=== PATIENT | female | born 1955 ===

== ENCOUNTER 2017-02-24 12:58 | Observation (INO) | payer OTHER ==
[2017-02-24 13:37] VITALS: BMI 32.1
--- NOTE | 2017-02-24 13:38 | ED PDOC ---
Arrival/HPI - General Time Seen by Provider: 02/24/17 13:26 Historian: Patient, Family (Daughter) - History of Present Illness Narrative History of Present Illness (Text): 02/24/17 13:36 61 year old female with a past medical history that includes gastritis, diverticulitis, pancreatitis, hypertension, hypercholesterlemia, and diabetes presents to the emergency department with worsening epigastric pain with nausea since 02:00 this morning. History translated by daughter at bedside. Patient states it radiates up to the chest. Patient states this feels more severe than her previous symptoms. Denies shortness of breath, dizziness, or other symptoms. Denies family history of cardiac disease. Time/Duration: 24 hours Symptom Onset: Sudden Symptom Course: Worsening Modifying Factors (Text): None Past Medical History - Provider Review Nursing Documentation Reviewed: Yes - Infectious Disease Hx of Infectious Diseases: None - Tetanus Immunization Tetanus Immunization: Unknown - Cardiac Hx Cardiac Disorders: Yes Hx Hypertension: Yes - Pulmonary Hx Respiratory Disorders: No - Neurological Hx Neurological Disorder: Yes Hx Dizziness: Yes - HEENT Hx HEENT Disorder: No (OTITIS MEDIA) - Renal Hx Renal Disorder: No - Endocrine/Metabolic Hx Endocrine Disorders: Yes Hx Diabetes Mellitus Type 2: Yes Other/Comment: IDDM - Hematological/Oncological Hx Blood Disorders: No - Integumentary Hx Dermatological Disorder: No - Musculoskeletal/Rheumatological Hx Musculoskeletal Disorders: Yes Hx Arthritis: Yes Hx Falls: No - Gastrointestinal Hx Gastrointestinal Disorders: Yes Hx Diverticulitis: Yes Hx Gastroesophageal Reflux: Yes - Genitourinary/Gynecological Hx Genitourinary Disorders: No - Psychiatric Hx Depression: No Hx Emotional Abuse: No Hx Physical Abuse: No Hx Substance Use: No - Past Surgical History Past Surgical History: No Previous - Surgical History Hx Section: Yes - Anesthesia Hx Anesthesia Reactions: No - Suicidal Assessment Feels Threatened In Home Enviroment: No Family/Social History - Physician Review Nursing Documentation Reviewed: Yes Family/Social History: Unknown Family HX Smoking Status: Never Smoked Hx Alcohol Use: Yes (SOCIALLY) Hx Substance Use: No Hx Substance Use Treatment: No Allergies/Home Meds Allergies/Adverse Reactions: Allergies No Known Allergies Allergy (Verified 02/24/17 13:37) Home Medications: Home Meds Medication Instructions Recorded Confirmed Aspirin [Aspir 81] 81 mg PO DAILY 03/16/13 07/08/15 Review of Systems - Review of Systems Eyes: absent: Vision Changes ENT: absent: Hearing Changes Respiratory: absent: SOB, Cough Cardiovascular: Chest Pain. absent: Edema Gastrointestinal: Abdominal Pain, Nausea Genitourinary Female: absent: Dysuria Musculoskeletal: absent: Back Pain Skin: absent: Rash Neurological: absent: Dizziness Endocrine: absent: Diaphoresis Hemo/Lymphatic: absent: Easy Bleeding Psychiatric: absent: Depression Physical Exam - Physical Exam Narrative Physical Exam (Text): Head: Atraumatic. Normocephalic. Eyes: PERRL. EOMI. Conjunctivae are not pale. ENT: Mucous membranes are moist and intact. Oropharynx is clear and symmetric. Neck: Supple. Full ROM. No JVD. No lymphadenopathy. Cardiovascular: Tachycardic. Distal pulses in upper and lower extremities symmetric and intact. Pulmonary/Chest: No evidence of respiratory distress. Clear to auscultation bilaterally. No wheezing, rales or rhonchi. Abdominal: Soft and non-distended. Focal severe epigastric pain, no pulsatile masses, no rebound. No lower abdominal pain. Back: No CVA tenderness. No midline tenderness. Extremities: No edema. No cyanosis. No clubbing. Full range of motion in all extremities. No calf tenderness. Skin: Skin is diaphoretic. No petechiae. No purpura. Neurological: Alert, awake, and oriented to person, place, time, and situation. Normal speech. Motor and sensory intact. Psychiatric: Good eye contact. Normal interaction, affect, and behavior. 02/24/17 17:29 Vital Signs Reviewed: Yes Vital Signs Temp Pulse Resp BP Pulse Ox 02/24/17 13:40 99.1 F 127 H 16 133/81 94 L Temperature: Afebrile Blood Pressure: Normal Pulse: Tachycardic Respiratory Rate: Normal Appearance: Positive for: Uncomfortable Pain Distress: Severe Mental Status: Positive for: Alert and Oriented X 3 Medical Decision Making ED Course and Treatment: Differential diagnosis includes but is not limited to: Coronary artery disease vs gastritis vs perforated ulcer vs biliary colic vs diverticulitis vs appendicitis Plan: Will give IV fluids, Morphine, Zofran, obtain EKG and CT of the Abdomen/Pelvis, and reassess. Prior Visits: Patient's previous medical records were reviewed. Ultrasound of the Abdomen on 07/08/2015 showed: IMPRESSION: Unremarkable abdominal sonogram. CT of the Abdomen/Pelvis on 07/08/2015 showed: Impression: 9 mm right renal hypodense lesion, too small to adequately characterize ; statistically likely cyst. Scattered diverticulosis without CT evidence of acute diverticulitis. Progress Notes: Patient's daughter present who translates. On exam, she has palpable severe epigastric pain. Pain radiates to chest. EKG reveals tachycardia but no acute st elevations. Initial troponin unremarkable. Due to severity of pain, ct ordered to evalute for free air or obstruction, this was negative for free air or obstruction. Patient after iv fluids and iv pain medication, heart rate improved to 108. No hypoxia or pleuritic pain. Nonsmoker. No family hx of CAD. No recent travel or calf pain or edema noted. Suspect chest pain possible gi in nature. She reports prior hx of "gastritis" in 2014, although states much more severe. Cannot exclude cholelithiasis although CT did not reveal this. LFTs mildly elevated, this has been noticed in past. Will admit to hospitalist for serial exams, cardiac monitoring. Treatment plan reviewed with patient, case d/w Dr. Jara. 02/24/17 17:34 - Lab Interpretations Lab Results: 02/24/17 13:54 02/24/17 13:54 Lab Results 02/24/17 15:45: Urine Color Yellow, Urine Appearance Clear, Urine pH 7.0, Ur Specific [place] 1.020, Urine Protein Negative, Urine Glucose (UA) Negative, Urine Ketones Trace H, Urine Blood Negative, Urine Nitrate Negative, Urine Bilirubin Negative, Urine Urobilinogen 0.2, Ur Leukocyte Esterase Negative 02/24/17 14:26: POC Glucose (mg/dL) 115 H 02/24/17 13:54: WBC 9.1 D, RBC 5.28, Hgb 14.7, Hct 44.1, MCV 83.5, MCH 27.8, MCHC 33.3, RDW 14.0, Plt Count 203, MPV 9.5, Gran % 86.5 H, Lymph % (Auto) 4.2 L , [place] % (Auto) 8.2 H, Eos % (Auto) 1.0 L, Baso % (Auto) 0.1, Gran # 7.88 H, Lymph # 0.4 L, [place] # 0.8 H, Eos # 0.1, Baso # 0.01, PT 11.1, INR 1.03, APTT 27.5, pO2 55, VBG pH 7.38, VBG pCO2 46.0, VBG HCO3 27.2, VBG Total CO2 28.6 H, VBG O2 Sat (Calc) 91.6 H, VBG Base Excess 1.5, VBG Potassium 3.7, Glucose 172 H , Lactate 1.5, FiO2 21.0, Sodium 138.0, Potassium 3.8, Chloride 104.0, Carbon Dioxide 27, Anion Gap 14, BUN 26 H, Creatinine 0.6, Est GFR ( Amer) > 60 , Est GFR (Non-Af Amer) > 60, Random Glucose 167 H, Calcium 9.2, Total Bilirubin 1.0, AST 44 H, ALT 64 H, Alkaline Phosphatase 128, Lactate Dehydrogenase 590, Total Creatine Kinase 62, Troponin I < 0.01, Total Protein 8.6 H, Albumin 4.3, Globulin 4.3, Albumin/Globulin Ratio 1.0 L, Amylase 113, Lipase 129, Venous Blood Potassium 3.7 - RAD Interpretation Radiology Orders: 02/24/17 13:39 ABD & PELVIS W/O PO OR IV CONT [CT] Stat CHEST PORTABLE [RAD] Stat Boat Operator: Radiologist - EKG Interpretation EKG Interpretation (Text): EKG shows sinus tachycardia at [address] abnormality. Interpreted by ED Physician: Yes Type: 12 lead EKG - Medication Orders Current Medication Orders: Insulin Human Regular (Humulin R Low) 0 units SC ACHS JERMAINE Metoprolol Tartrate (Lopressor) 25 mg PO BRKDIN JERMAINE Morphine Sulfate (Morphine) 2 mg IVP Q4H PRN PRN Reason: Pain, severe (8-10) Ondansetron HCl (Zofran Inj) 4 mg IVP Q4H PRN PRN Reason: Nausea/Vomiting Pantoprazole Sodium (Protonix Inj) 40 mg IVP Q12 JERMAINE Discontinued Medications Famotidine (Pepcid) 20 mg IVP STAT STA Stop: 02/24/17 13:42 Last Admin: 02/24/17 13:50 Dose: 20 MG IVP Administration Document 02/24/17 13:50 [facility] (Rec: 02/24/17 13:50 [id number]) Charges for Administration # of IVP Administrations 1 Sodium Chloride (Sodium Chloride 0.9%) 1,000 mls @ 1,000 mls/hr IV .Q1H STA Stop: 02/24/17 14:40 Last Admin: 02/24/17 13:49 Dose: 1,000 MLS/HR eMAR Start Stop Document 02/24/17 13:49 [facility] (Rec: 02/24/17 13:50 [id number] Intravenous Solution Start Date 02/24/17 Start Time 13:50 End Date 02/24/17 End time 14:50 Total Infusion Time 60 Morphine Sulfate (Morphine) 2 mg IVP STAT STA Stop: 02/24/17 13:42 Last Admin: 02/24/17 13:50 Dose: 2 MG MAR Pain Assessment Document 02/24/17 13:50 [facility] (Rec: 02/24/17 13:50 [id number] Pain Reassessment Is this a pain reassessment? No IVP Administration Document 02/24/17 13:50 [facility] (Rec: 02/24/17 13:50 [id number] Charges for Administration # of IVP Administrations 1 Ondansetron HCl (Zofran Inj) 4 mg IVP ONCE ONE Stop: 02/24/17 13:42 Last Admin: 02/24/17 13:50 Dose: 4 MG IVP Administration Document 02/24/17 13:50 [facility] (Rec: 02/24/17 13:50 [id number] Charges for Administration # of IVP Administrations 1 - Scribe Statement The provider has reviewed the documentation as recorded by the Karthik Grover All medical record entries made by the Karthik were at my direction and personally dictated by me. I have reviewed the chart and agree that the record accurately reflects my personal performance of the history, physical exam, medical decision making, and the department course for this patient. I have also personally directed, reviewed, and agree with the discharge instructions and disposition. Disposition/Present on Arrival - Present on Arrival Any Indicators Present on Arrival: Yes History of DVT/PE: No History of Uncontrolled Diabetes: Yes Urinary Catheter: No History Surgical Site Infection Following: None - Disposition Have Diagnosis and Disposition been Completed?: Yes Diagnosis: Chest pain, Abdominal pain Disposition: HOSPITALIZED Disposition Time: 15:20 Patient Plan: Admission, Observation Patient Problems: Current Active Problems Problem Status Diagnosed Abdominal pain Acute Chest pain Acute Condition: FAIR
[2017-02-24] MEDS ORDERED: Sodium Chloride 0.9% 1,000 ML IV STA (13:41)
[2017-02-24] MEDS ORDERED: Morphine 2 mg/ml ISec IVP STA (13:41)
[2017-02-24 13:55] LABS: ADD MANUAL DIFF? NO
[2017-02-24 13:59] LABS: BASO # 0.01 K/mm3 (0.0-2.0); BASO % 0.1 % (0.0-3.0); EOS # 0.1 (0.0-0.7); GRAN # 7.88 (1.4-6.5); GRAN % 86.5 % (50.0-68.0); HEMATOCRIT 44.1 % (36.0-48.0); LYMPH # 0.4 (1.2-3.4); LYMPH % 4.2 % (22.0-35.0); MEAN CELL VOLUME 83.5 fL (80.0-105.0); MEAN CORPUSCULAR HEMOGLOBIN 27.8 pg (25.0-35.0); MEAN CORPUSCULAR HGB CONC 33.3 g/dl (31.0-37.0); MEAN PLATELET VOLUME 9.5 fl (7.0-11.0); MONO # 0.8 (0.1-0.6); MONO % 8.2 % (1.0-6.0); PLATELET COUNT 203 10^3/uL (120.0-450.0); WHITE BLOOD COUNT 9.1 10^3/ul (4.5-11.0)
[2017-02-24 14:12] LABS: INR 1.03 (0.93-1.08); PARTIAL THROMBOPLASTIN TIME 27.5 Seconds (23.7-30.8)
[2017-02-24 14:16] LABS: VENOUS BLOOD GAS BASE EXCESS 1.5 mmol/L (0.0-2.0); VENOUS BLOOD PH 7.38 (7.32-7.43)
[2017-02-24 14:32] LABS: ALKALINE PHOSPHATASE 128 U/L (38-133); ALT/SGPT 64 U/L (7-56); AMYLASE 113 U/L (35-125); AST/SGOT 44 U/L (15-39); BLOOD UREA NITROGEN 26 mg/dL (7-21); CALCIUM 9.2 mg/dL (8.4-10.5); CARBON DIOXIDE 27 mmol/L (21-33); CHLORIDE 100 mmol/L (98-107); GFR AFRICAN-AMERICAN > 60; GLUCOSE,RANDOM 167 mg/dL (70-110); LIPASE 129 U/L (23-300); POTASSIUM 3.8 mmol/L (3.6-5.0); SODIUM 137 mmol/L (132-148); TOTAL PROTEIN 8.6 g/dL (5.8-8.3)
[2017-02-24 14:45] LABS: TROPONIN I < 0.01 ng/mL
--- NOTE | 2017-02-24 15:17 | CT ---
PROCEDURE: CT Abdomen and Pelvis without intravenous contrast HISTORY: severe upper abdominal pain with nausea COMPARISON: None. TECHNIQUE: Without contrast.. Contrast Dose: Radiation dose: Total exam DLP = 656 mGy-cm. This CT exam was performed using one or more of the following dose reduction techniques: Automated exposure control, adjustment of the mA and/or kV according to patient size, and/or use of iterative reconstruction technique. FINDINGS: LOWER THORAX: Unremarkable. LIVER: Unremarkable. No gross lesion or ductal dilatation. GALLBLADDER AND BILE DUCTS: Unremarkable. PANCREAS: Unremarkable. No gross lesion or ductal dilatation. SPLEEN: Unremarkable. ADRENALS: Unremarkable. No mass. KIDNEYS AND URETERS: Unremarkable. No hydronephrosis. No solid mass. VASCULATURE: Unremarkable. No aortic aneurysm. BOWEL: Unremarkable. No obstruction. No gross mural thickening. Mild diverticulosis APPENDIX: Unremarkable. Normal appendix. PERITONEUM: Unremarkable. No free fluid. No free air. LYMPH NODES: Unremarkable. No enlarged lymph nodes. BLADDER: Unremarkable. REPRODUCTIVE: Small right ovarian cyst BONES: No acute fracture. OTHER FINDINGS: None. IMPRESSION: No acute findings
--- NOTE | 2017-02-24 15:17 | RAD ---
HISTORY: chest pain COMPARISON: No prior. FINDINGS: LUNGS: No active pulmonary disease. PLEURA: No significant pleural effusion identified, no pneumothorax apparent. CARDIOVASCULAR: Normal. OSSEOUS STRUCTURES: No significant abnormalities. VISUALIZED UPPER ABDOMEN: Normal. OTHER FINDINGS: None. IMPRESSION: No active disease.
[2017-02-24 16:01] LABS: URINE BILIRUBIN NEGATIVE (NEGATIVE); URINE BLOOD NEGATIVE (NEGATIVE); URINE GLUCOSE (UA) NEGATIVE (NEGATIVE); URINE KETONE TRACE mg/dL (NEGATIVE); URINE LEUKOCYTE ESTERASE NEGATIVE Leu/uL (NEGATIVE); URINE PROTEIN NEGATIVE mg/dL (<30 mg/dL); URINE UROBILINOGEN 0.2 E.U./dL (<1 E.U./dL)
[2017-02-24 16:03] LABS: URINE APPEARANCE CLEAR (CLEAR); URINE COLOR YELLOW (YELLOW)
[2017-02-24] MEDS ORDERED: Morphine 2 mg/ml ISec IVP PRN (16:25)
--- NOTE | 2017-02-24 16:33 | CP.PCM.HP ---
<Stacy Pickens - Last Filed: 02/24/17 18:36> History of Present Illness - History of Present Illness History of Present Illness: CC: Abdominal pain HPI: 61 year old female hypertension, DM, gastritis and hypercholesterlemia presents to [facility] with epigastric pain. Patient reports the pain started this morning at 1 am and it suddenly got worse at 10am. Patient describes the pain as sharp in quality, radiates to both sides of her abdomen. Patient reports having 1 episodes of NBNB vomiting and 3 episodes of diarrhea which alleviated her abdominal pain. Patient states she had the similar abdominal pain 2 years ago. Patient never had colonoscopy or endoscopy done before. She is schedule for a colonoscopy next month. Patient had a subjective fever at home. Denies headache, blurry vision, shortness of breath, chest pain, urinary symptoms, sick contacts, recent changes in diet. PMD: Dr. Szymanski from [place], [place] PMHx: hypertension, DM, gastritis and hypercholesterlemia PSHx: FMHx: father had gallstone Allergy: none Social: Denies tobacco, alcohol, other drug use Meds: Asa, omeprazole, januvia, levemir Present on Admission - Present on Admission Any Indicators Present on Admission: No Review of Systems - Review of Systems All systems: reviewed and no additional remarkable complaints except - Constitutional Constitutional: As Per HPI, Fever. absent: Fatigue, Headache - EENT Eyes: As Per HPI. absent: Blurred Vision, Dry Eye, Irritation Ears: As Per HPI. absent: Disequilibrium, Dizziness Nose/Mouth/Throat: As Per HPI. absent: Dry Mouth, Hoarsness, Mouth Pain - Cardiovascular Cardiovascular: As Per HPI. absent: Chest Pain, Diaphoresis, Dyspnea, Edema, Lightheadedness, Pedal Edema, Rapid Heart Rate, Syncope - Respiratory Respiratory: As Per HPI. absent: Cough, Dyspnea, Wheezing - Gastrointestinal Gastrointestinal: As Per HPI, Abdominal Pain, Diarrhea, Nausea, Vomiting. absent: Constipation, Dysphagia, Heartburn - Genitourinary Genitourinary: absent: Urinary Frequency, Urinary Hesitance, Urinary Urgency, Voiding Freq/Small Amts - Musculoskeletal Musculoskeletal: As Per HPI. absent: Deformity, Numbness, Tingling - Integumentary Integumentary: As Per HPI. absent: Acne, Rash, Swelling - Neurological Neurological: As Per HPI. absent: Dizziness, Syncope, Tremor, Weakness - Psychiatric Psychiatric: As Per HPI. absent: Anxiety, Confusion, Depression, Hallucinations - Endocrine Endocrine: As Per HPI. absent: Palpitations, Polydipsia, Polyphagia, Polyuria Past Patient History - Infectious Disease Hx of Infectious Diseases: None - Tetanus Immunizations Tetanus Immunization: Unknown - Past Social History Smoking Status: Never Smoked - CARDIAC Hx Cardiac Disorders: Yes Hx Hypertension: Yes - PULMONARY Hx Respiratory Disorders: No - NEUROLOGICAL Hx Neurological Disorder: Yes Hx Dizziness: Yes - HEENT Hx HEENT Problems: No (OTITIS MEDIA) - RENAL Hx Chronic Kidney Disease: No - ENDOCRINE/METABOLIC Hx Endocrine Disorders: Yes Hx Diabetes Mellitus Type 2: Yes Other/Comment: IDDM - HEMATOLOGICAL/ONCOLOGICAL Hx Blood Disorders: No - INTEGUMENTARY Hx Dermatological Problems: No - MUSCULOSKELETAL/RHEUMATOLOGICAL Hx Musculoskeletal Disorders: Yes Hx Arthritis: Yes Hx Falls: No - GASTROINTESTINAL Hx Gastrointestinal Disorders: Yes Hx Diverticulitis: Yes Hx Gastroesophageal Reflux: Yes - GENITOURINARY/GYNECOLOGICAL Hx Genitourinary Disorders: No - PSYCHIATRIC Hx Depression: No Hx Emotional Abuse: No Hx Physical Abuse: No Hx Substance Use: No - SURGICAL HISTORY Hx Section: Yes - ANESTHESIA Hx Anesthesia Reactions: No Meds Home Medications: Home Medication List Medication Instructions Recorded Confirmed Type Ondansetron ODT [Zofran ODT] 4 mg PO Q8 PRN #21 odt 02/25/17 Rx Allergies/Adverse Reactions: Allergies Allergy/AdvReac Type Severity Reaction Status Date / Time No Known Allergies Allergy Verified 02/24/17 13:37 Physical Exam - Constitutional Appears: Non-toxic, No Acute Distress - Head Exam Head Exam: ATRAUMATIC - Eye Exam Eye Exam: Normal appearance - ENT Exam ENT Exam: Mucous Membranes Moist - Neck Exam Neck exam: Positive for: Normal Inspection - Respiratory Exam Respiratory Exam: Clear to Auscultation Bilateral, NORMAL BREATHING PATTERN. absent: Rhonchi, Wheezes, Respiratory Distress - Cardiovascular Exam Cardiovascular Exam: REGULAR RHYTHM, RRR, +S1, +S2 - GI/Abdominal Exam GI & Abdominal Exam: Normal Bowel Sounds, Soft, Tenderness. absent: Hernia, Rigid Additional comments: epigastric tenderness - Extremities Exam Extremities exam: Positive for: normal capillary refill, normal inspection, pedal pulses present. Negative for: tenderness - Back Exam Back exam: NORMAL INSPECTION. absent: CVA tenderness (L), CVA tenderness (R) - Neurological Exam Neurological exam: Alert, Oriented x3 - Psychiatric Exam Psychiatric exam: Normal Affect, Normal Mood - Skin Skin Exam: Dry, Intact, Warm Results - Vital Signs Recent Vital Signs: Last Vital Signs Temp 99.1 F 02/24/17 13:40 Pulse 127 H 02/24/17 13:40 Resp 16 02/24/17 13:40 BP 133/81 02/24/17 13:40 Pulse Ox 94 L 02/24/17 13:40 - Labs Result Diagrams: 02/24/17 13:54 02/24/17 13:54 Assessment & Plan - Assessment and Plan (Free Text) Assessment: 61 year old female with past medical history of gastritis, diverticulitis, pancreatitis, hypertension, hypercholesterlemia, and diabetes was admitted for gastroenteritis Epicgastric abdominal pain -Gastroenteritis vs Gastritis -Afrebile, no leukocytosis -CT abd&pelvis no acute findings -Follow up hepatitis panels -Follow up stool, urine, and blood cultures -Follow up fecal leukocyte, stool occult blood -GI consult, Dr. Calderon help appreciated -Follow up Abdominal u/s to rule out gallstone -Cardio consult, Dr. Valdes help appreciated -Troponin negative x 1, pending repeats -NPO -Morphine 2mg Q4prn -Protonix 40mg iv DM -ISS -FS ACHS Hypertension -Metoprolol 25mg po BID -Monitor vitals Prophylactic measures -SCD for DVT ppx -Protonix for GI ppx -Tylenol for fever <Rangasamy,Ajantha - Last Filed: 03/07/17 16:34> Results - Vital Signs Recent Vital Signs: Last Vital Signs Temp 98.2 F 02/25/17 12:00 Pulse 75 02/25/17 14:00 Resp 20 02/25/17 12:00 BP 127/69 02/25/17 12:00 Pulse Ox 97 02/25/17 05:48 - Labs Result Diagrams: 02/24/17 13:54 02/25/17 06:45 Assessment & Plan - Assessment and Plan (Free Text) Assessment: attending note; Patient seen and examined with resident in ER. Patient is a 61 year old female hypertension, DM, gastritis and hypercholesterlemia presents to [facility] with epigastric pain. Patient reports the pain started this morning at 1 am and it suddenly got worse at 10am. CT abdomen and pelvis is negative. Most likely secondary to gastritis. Abdominal ultrasound and ordered to rule out gallstones.GI evaluation requested. chest pain; mostly in the epigastric area. Cardiac enzymes ordered. Upon discharge patient will follow-up with PMD in [place]. the diagnosis and treatment plan discussed with patient's daughter in detail. Attending/Attestation - Attestation I have personally seen and examined this patient.: Yes I have fully participated in the care of the patient.: Yes I have reviewed all pertinent clinical information: Yes
[2017-02-24] MEDS: Insulin Reg-LOW-Coverage SC SCH ×2 (19:19→21:33)
[2017-02-24] MEDS: Sodium Chloride 0.9% 1,000 ML IV SCH (20:26)
[2017-02-24 22:01] LABS: TROPONIN I < 0.01 ng/mL
[2017-02-25 05:48] VITALS: O2SAT 97
[2017-02-25 07:40] LABS: TROPONIN I 0.01 ng/mL
[2017-02-25] MEDS: Insulin Reg-LOW-Coverage SC SCH ×3 (07:57→17:22)
[2017-02-25 07:59] LABS: ALB/GLOB RATIO 0.9 (1.1-1.8); ALKALINE PHOSPHATASE 77 U/L (38-133); ALT/SGPT 53 U/L (7-56); AST/SGOT 43 U/L (15-39); BILIRUBIN,TOTAL 0.7 mg/dL (0.2-1.3); BLOOD UREA NITROGEN 26 mg/dL (7-21); CALCIUM 7.5 mg/dL (8.4-10.5); CARBON DIOXIDE 26 mmol/L (21-33); CHLORIDE 104 mmol/L (98-107); GFR AFRICAN-AMERICAN > 60; GLUCOSE,RANDOM 118 mg/dL (70-110); POTASSIUM 3.5 mmol/L (3.6-5.0); SODIUM 139 mmol/L (132-148); TOTAL PROTEIN 6.7 g/dL (5.8-8.3)
--- NOTE | 2017-02-25 08:58 | CP.PCM.CON ---
<Misti Galan - Last Filed: 02/25/17 08:59> History of Present Illness - History of Present Illness History of Present Illness: Gastroenterology Fellow/PGY4 Consult Note 61 year old female with history of Diabetes, Hypertension, Hyperlipidemia, and acid reflux presenting with chest pain. Patient describes mild epigastric discomfort yesterday around 530AM with progressive worsening to unbearable epigastric sharp pain without radiation by 1030AM, pain scale 10/10. She associates bilateral chest pressure, shortness of breath, and diaphoresis leading to ER presentation. Patient is different in character than usual acid reflux symptoms.She notes three episodes of clear vomitus and three episodes of diarrhea during event. Denies heartburn, indigestion, bloating, constipation, hematochezia, hematemesis, or weight loss. Overnight, she had two additional episodes of diarrhea. She notes complete resolution of epigastric pain and chest pressure. No further vomitus episodes. She does admit to routine use of Ibuprofen for pain relief over the last 10-15 years with decreased frequency to 3-4 pills a week. No prior EGD or colonoscopy. Family- father and daughter-gallstones, denies stomach cancer or colon cancer Social-denies tobacco, alcohol, illicit drug use [id number] Review of Systems - Review of Systems Review of Systems: A 12-point review of systems negative except for as above Past Patient History - Infectious Disease Hx of Infectious Diseases: None - Tetanus Immunizations Tetanus Immunization: Unknown - Past Social History Smoking Status: Never Smoked - CARDIAC Hx Cardiac Disorders: Yes Hx Hypertension: Yes - PULMONARY Hx Respiratory Disorders: No - NEUROLOGICAL Hx Neurological Disorder: Yes Hx Dizziness: Yes - HEENT Hx HEENT Problems: No (OTITIS MEDIA) - RENAL Hx Chronic Kidney Disease: No - ENDOCRINE/METABOLIC Hx Endocrine Disorders: Yes Hx Diabetes Mellitus Type 2: Yes Other/Comment: IDDM - HEMATOLOGICAL/ONCOLOGICAL Hx Blood Disorders: No - INTEGUMENTARY Hx Dermatological Problems: No - MUSCULOSKELETAL/RHEUMATOLOGICAL Hx Musculoskeletal Disorders: Yes Hx Arthritis: Yes Hx Falls: No - GASTROINTESTINAL Hx Gastrointestinal Disorders: Yes Hx Diverticulitis: Yes Hx Gastroesophageal Reflux: Yes - GENITOURINARY/GYNECOLOGICAL Hx Genitourinary Disorders: No - PSYCHIATRIC Hx Depression: No Hx Emotional Abuse: No Hx Physical Abuse: No Hx Substance Use: No - SURGICAL HISTORY Hx Section: Yes - ANESTHESIA Hx Anesthesia Reactions: No Meds Allergies/Adverse Reactions: Allergies Allergy/AdvReac Type Severity Reaction Status Date / Time No Known Allergies Allergy Verified 02/24/17 13:37 - Medications Medications: Current Medications Acetaminophen (Tylenol 325mg Tab) 650 mg PO Q6H PRN PRN Reason: Headache Last Admin: 02/24/17 18:18 Dose: 650 mg Sodium Chloride (Sodium Chloride 0.9%) 1,000 mls @ 75 mls/hr IV .[id number] [facility] Last Admin: 02/24/17 20:26 Dose: 75 mls/hr Insulin Human Regular (Humulin R Low) 0 units SC ACHS [facility] Last Admin: 02/24/17 21:33 Dose: Not Given Metoprolol Tartrate (Lopressor) 25 mg PO BRKDIN [facility] Last Admin: 02/24/17 18:17 Dose: 25 mg Morphine Sulfate (Morphine) 2 mg IVP Q4H PRN PRN Reason: Pain, severe (8-10) Ondansetron HCl (Zofran Inj) 4 mg IVP Q4H PRN PRN Reason: Nausea/Vomiting Pantoprazole Sodium (Protonix Inj) 40 mg IVP Q12 [facility] Last Admin: 02/24/17 21:32 Dose: 40 mg Physical Exam - Constitutional Appears: Non-toxic, No Acute Distress - Head Exam Head Exam: ATRAUMATIC, NORMOCEPHALIC - Eye Exam Eye Exam: EOMI, PERRL Pupil Exam: PERRL. absent: Miosis, Mydriatic - ENT Exam ENT Exam: Mucous Membranes Moist, Normal Oropharynx - Neck Exam Neck exam: Positive for: Full Rom, Normal Inspection - Respiratory Exam Respiratory Exam: Clear to Auscultation Bilateral. absent: Rales, Rhonchi, Wheezes - Cardiovascular Exam Cardiovascular Exam: RRR, +S1, +S2. absent: Gallop, Rubs - GI/Abdominal Exam GI & Abdominal Exam: Normal Bowel Sounds, Soft. absent: Distended, Firm, Guarding, Organomegaly, Rebound, Rigid, Tenderness - Extremities Exam Extremities exam: Positive for: full ROM. Negative for: pedal edema - Neurological Exam Neurological exam: Alert - Psychiatric Exam Psychiatric exam: Normal Affect, Normal Mood - Skin Skin Exam: Dry, Intact, Normal Color, Warm Results - Vital Signs Recent Vital Signs: Last Vital Signs Temp 98.8 F 02/25/17 05:48 Pulse 80 02/25/17 05:48 Resp 22 02/25/17 05:48 BP 120/60 02/25/17 05:48 Pulse Ox 97 02/25/17 05:48 - Labs Result Diagrams: 02/24/17 13:54 02/25/17 06:45 Labs: Laboratory Results - last 24 hr 02/24/17 02/24/17 02/25/17 18:10 21:15 06:45 Sodium 139 Potassium 3.5 L Chloride 104 Carbon Dioxide 26 Anion Gap 13 BUN 26 H Creatinine 0.7 Est GFR ( Amer) > 60 Est GFR (Non-Af Amer) > 60 POC Glucose (mg/dL) 141 H 141 H Random Glucose 118 H Calcium 7.5 L Total Bilirubin 0.7 AST 43 H ALT 53 Alkaline Phosphatase 77 Lactate Dehydrogenase 477 444 Total Creatine Kinase 51 42 Troponin I < 0.01 0.01 Total Protein 6.7 Albumin 3.3 Globulin 3.5 Albumin/Globulin Ratio 0.9 L Triglycerides 83 Cholesterol 165 LDL Cholesterol Direct 88 HDL Cholesterol 46 Assessment & Plan - Assessment and Plan (Free Text) Assessment: 61 year old female with history of Diabetes, Hypertension, Hyperlipidemia, and acid reflux presenting with chest pain and epigastric pain. CT A/P showing no acute findings. Laboratory findings showing mild elevation of transaminases. No prior EGD or colonoscopy. Plan: >chronic elevated LFTs since 12/2014 >pending Abdominal Ultrasound >pending Hepatitis panel >ordered autoimmune workup pending stool culture >counselled on benefit from outpatient EGD if symptoms persist and colonoscopy for CRC screening <Dwight Knott - Last Filed: 02/25/17 09:16> Meds - Medications Medications: Current Medications Acetaminophen (Tylenol 325mg Tab) 650 mg PO Q6H PRN PRN Reason: Headache Last Admin: 02/24/17 18:18 Dose: 650 mg Sodium Chloride (Sodium Chloride 0.9%) 1,000 mls @ 75 mls/hr IV .[id number] [facility] Last Admin: 02/24/17 20:26 Dose: 75 mls/hr Insulin Human Regular (Humulin R Low) 0 units SC ACHS [facility] Last Admin: 02/24/17 21:33 Dose: Not Given Metoprolol Tartrate (Lopressor) 25 mg PO BRKDIN [facility] Last Admin: 02/24/17 18:17 Dose: 25 mg Morphine Sulfate (Morphine) 2 mg IVP Q4H PRN PRN Reason: Pain, severe (8-10) Ondansetron HCl (Zofran Inj) 4 mg IVP Q4H PRN PRN Reason: Nausea/Vomiting Pantoprazole Sodium (Protonix Inj) 40 mg IVP Q12 [facility] Last Admin: 02/24/17 21:32 Dose: 40 mg Results - Vital Signs Recent Vital Signs: Last Vital Signs Temp 98.8 F 02/25/17 05:48 Pulse 80 02/25/17 05:48 Resp 22 02/25/17 05:48 BP 120/60 02/25/17 05:48 Pulse Ox 97 02/25/17 05:48 - Labs Result Diagrams: 02/24/17 13:54 02/25/17 06:45 Labs: Laboratory Results - last 24 hr 02/24/17 02/24/17 02/25/17 18:10 21:15 06:45 Sodium 139 Potassium 3.5 L Chloride 104 Carbon Dioxide 26 Anion Gap 13 BUN 26 H Creatinine 0.7 Est GFR ( Amer) > 60 Est GFR (Non-Af Amer) > 60 POC Glucose (mg/dL) 141 H 141 H Random Glucose 118 H Calcium 7.5 L Total Bilirubin 0.7 AST 43 H ALT 53 Alkaline Phosphatase 77 Lactate Dehydrogenase 477 444 Total Creatine Kinase 51 42 Troponin I < 0.01 0.01 Total Protein 6.7 Albumin 3.3 Globulin 3.5 Albumin/Globulin Ratio 0.9 L Triglycerides 83 Cholesterol 165 LDL Cholesterol Direct 88 HDL Cholesterol 46 Attending/Attestation - Attestation I have personally seen and examined this patient.: Yes I have fully participated in the care of the patient.: Yes I have reviewed all pertinent clinical information: Yes Notes (Text): 02/25/17 09:09 I have seen and examined patient with GI fellow. In brief, this is a 61 year old female with history of DM, HTN, hyperlipidemia who presents to hospital with complaint of chest pain which began yesterday at 5:30 AM and became worse by 10:30 AM. Prior to this she was in usual state of health. She describes a substernal burning sensation with associated epigastric abdominal pain, non- bloody emesis, and diarrhea. Since arrival to hospital her chest and abdominal pain have resolved but she continues to have loose bowel movements (two episodes overnight). She denies weight loss, rectal bleeding, fever/chills, recent travel, sick contacts, or recent antibiotic use. No prior endoscopic evaluation. DM / HTN Hyperlipidemia Atypical chest pain, epigastric pain Nausea, vomiting, diarrhea - ?gastroenteritis Transaminitis with similar elevation since 2014 - Awaiting results of abdominal US - Advance diet slowly as tolerated - Obtain viral hepatitis panel - Obtain stool studies - Workup of atypical chest pain as per medical team - Patient would benefit from elective outpatient EGD/colonoscopy following resolution of acute symptoms
[2017-02-25] MEDS ORDERED: Potassium Chloride 20 mEq ER Tab PO ONE (09:14)
[2017-02-25] MEDS: Sodium Chloride 0.9% 1,000 ML IV SCH (10:58)
--- NOTE | 2017-02-25 11:55 | US ---
HISTORY: r/o gall stone COMPARISON: None. TECHNIQUE: Grayscale imaging was performed. FINDINGS: LIVER: Measures 14.2 cm. There is diffuse increased echogenicity of the liver parenchyma. No mass. No intrahepatic bile duct dilatation. GALLBLADDER: Unremarkable. No gallstones. COMMON BILE DUCT: Measures 6 mm. No stones. No dilatation. PANCREAS: Unremarkable as visualized. No mass. No ductal dilatation. RIGHT KIDNEY: Measures 11.2cm. Normal echogenicity. No calculus, mass, or hydronephrosis. LEFT KIDNEY: Measures 12.5cm. Normal echogenicity. No calculus, mass, or hydronephrosis. SPLEEN: Normal in size and contour. No mass. AORTA: No aneurysmal dilatation. IVC: Unremarkable. OTHER FINDINGS: None. IMPRESSION: Diffuse increased echogenicity in the liver may reflect hepatic steatosis however parenchymal infectious/ inflammatory etiologies cannot be entirely excluded. Clinical and laboratory correlation is advised. No cholelithiasis or biliary dilatation.
[2017-02-25 13:01] VITALS: BP 127/69; PULSE 75; RESP 20; TEMP 98.2
--- NOTE | 2017-02-25 13:18 | CP.PCM.DIS ---
Addendum entered and electronically signed by Edin Self DO 02/25/17 15:25: F/U with GI in 2 weeks F/U at [facility] in 1 week Original Note: <Edin Self - Last Filed: 02/25/17 13:15> Provider - Provider Date of Admission: 02/24/17 15:54 Attending physician: Fiorella Salinas MD Primary care physician: NO PRIMARY CARE PROVIDER Time Spent in preparation of Discharge (in minutes): 45 Hospital Course - Lab Results Lab Results: Most Recent Lab Values WBC 9.1 10^3/ul (4.5-11.0) D 02/24/17 13:54 RBC 5.28 10^6/uL (3.5-6.1) 02/24/17 13:54 Hgb 14.7 gm/dL (12.0-16.0) 02/24/17 13:54 Hct 44.1 % (36.0-48.0) 02/24/17 13:54 MCV 83.5 fL (80.0-105.0) 02/24/17 13:54 MCH 27.8 pg (25.0-35.0) 02/24/17 13:54 MCHC 33.3 g/dl (31.0-37.0) 02/24/17 13:54 RDW 14.0 % (11.5-14.5) 02/24/17 13:54 Plt Count 203 10^3/uL (120.0-450.0) 02/24/17 13:54 MPV 9.5 fl (7.0-11.0) 02/24/17 13:54 Gran % 86.5 % (50.0-68.0) H 02/24/17 13:54 Lymph % (Auto) 4.2 % (22.0-35.0) L 02/24/17 13:54 [place] % (Auto) 8.2 % (1.0-6.0) H 02/24/17 13:54 Eos % (Auto) 1.0 % (1.5-5.0) L 02/24/17 13:54 Baso % (Auto) 0.1 % (0.0-3.0) 02/24/17 13:54 Gran # 7.88 (1.4-6.5) H 02/24/17 13:54 Lymph # 0.4 (1.2-3.4) L 02/24/17 13:54 Montgomery # 0.8 (0.1-0.6) H 02/24/17 13:54 Eos # 0.1 (0.0-0.7) 02/24/17 13:54 Baso # 0.01 K/mm3 (0.0-2.0) 02/24/17 13:54 PT 11.1 Seconds (9.9-11.8) 02/24/17 13:54 INR 1.03 (0.93-1.08) 02/24/17 13:54 APTT 27.5 Seconds (23.7-30.8) 02/24/17 13:54 pO2 55 mm/Hg (30-55) 02/24/17 13:54 VBG pH 7.38 (7.32-7.43) 02/24/17 13:54 VBG pCO2 46.0 (40-60) 02/24/17 13:54 VBG HCO3 27.2 mmol/l (21-28) 02/24/17 13:54 VBG Total CO2 28.6 mmol.L (22-28) H 02/24/17 13:54 VBG O2 Sat (Calc) 91.6 % (40-65) H 02/24/17 13:54 VBG Base Excess 1.5 mmol/L (0.0-2.0) 02/24/17 13:54 VBG Potassium 3.7 mmol/L (3.6-5.2) 02/24/17 13:54 Sodium 138.0 mmol/L (132-148) 02/24/17 13:54 Chloride 104.0 mmol/L (98-107) 02/24/17 13:54 Glucose 172 mg/dl (65-105) H 02/24/17 13:54 Lactate 1.5 mmol/L (0.7-2.1) 02/24/17 13:54 FiO2 21.0 % 02/24/17 13:54 Sodium 139 mmol/L (132-148) 02/25/17 06:45 Potassium 3.5 mmol/L (3.6-5.0) L 02/25/17 06:45 Chloride 104 mmol/L (98-107) 02/25/17 06:45 Carbon Dioxide 26 mmol/L (21-33) 02/25/17 06:45 Anion Gap 13 (10-20) 02/25/17 06:45 BUN 26 mg/dL (7-21) H 02/25/17 06:45 Creatinine 0.7 mg/dL (0.5-1.4) 02/25/17 06:45 Est GFR ( Amer) > 60 02/25/17 06:45 Est GFR (Non-Af Amer) > 60 02/25/17 06:45 POC Glucose (mg/dL) 141 mg/dL (65-110) H 02/24/17 21:15 Random Glucose 118 mg/dL (70-110) H 02/25/17 06:45 Calcium 7.5 mg/dL (8.4-10.5) L 02/25/17 06:45 Total Bilirubin 0.7 mg/dL (0.2-1.3) 02/25/17 06:45 AST 43 U/L (15-39) H 02/25/17 06:45 ALT 53 U/L (7-56) 02/25/17 06:45 Alkaline Phosphatase 77 U/L (38-133) 02/25/17 06:45 Lactate Dehydrogenase 444 U/L (333-699) 02/25/17 06:45 Total Creatine Kinase 42 U/L (35-230) 02/25/17 06:45 Troponin I 0.01 ng/mL 02/25/17 06:45 Total Protein 6.7 g/dL (5.8-8.3) 02/25/17 06:45 Albumin 3.3 g/dL (3.0-4.8) 02/25/17 06:45 Globulin 3.5 gm/dL 02/25/17 06:45 Albumin/Globulin Ratio 0.9 (1.1-1.8) L 02/25/17 06:45 Triglycerides 83 mg/dL (35-160) 02/25/17 06:45 Cholesterol 165 mg/dL (130-200) 02/25/17 06:45 LDL Cholesterol Direct 88 mg/dL (0-129) 02/25/17 06:45 HDL Cholesterol 46 mg/dL (29-60) 02/25/17 06:45 Amylase 113 U/L (35-125) 02/24/17 13:54 Lipase 129 U/L (23-300) 02/24/17 13:54 Venous Blood Potassium 3.7 mmol/L (3.6-5.2) 02/24/17 13:54 Urine Color Yellow (YELLOW) 02/24/17 15:45 Urine Appearance Clear (CLEAR) 02/24/17 15:45 Urine pH 7.0 (4.7-8.0) 02/24/17 15:45 Ur Specific [place] 1.020 (1.005-1.035) 02/24/17 15:45 Urine Protein Negative mg/dL (<30 mg/dL) 02/24/17 15:45 Urine Glucose (UA) Negative mg/dL (NEGATIVE) 02/24/17 15:45 Urine Ketones Trace mg/dL (NEGATIVE) H 02/24/17 15:45 Urine Blood Negative (NEGATIVE) 02/24/17 15:45 Urine Nitrate Negative (NEGATIVE) 02/24/17 15:45 Urine Bilirubin Negative (NEGATIVE) 02/24/17 15:45 Urine Urobilinogen 0.2 E.U./dL (<1 E.U./dL) 02/24/17 15:45 Ur Leukocyte Esterase Negative Parish/uL (NEGATIVE) 02/24/17 15:45 Hepatitis A IgM Ab Negative (NEGATIVE) 02/25/17 06:45 Hep Bs Antigen Negative (NEGATIVE) 02/25/17 06:45 Hep B Core IgM Ab Negative (NEGATIVE) 02/25/17 06:45 Hepatitis C Antibody Negative (NEGATIVE) 02/25/17 06:45 - Hospital Course Hospital Course: 61 year old female hypertension, DM, gastritis and hypercholesterlemia presents to [facility] with epigastric pain. Patient reports the pain started this morning at 1 am and it suddenly got worse at 10am. Patient describes the pain as sharp in quality, radiates to both sides of her abdomen. Patient reports having 1 episodes of NBNB vomiting and 3 episodes of diarrhea which alleviated her abdominal pain. Patient states she had the similar abdominal pain 2 years ago. Patient never had colonoscopy or endoscopy done before. She is schedule for a colonoscopy next month. Patient had a subjective fever at home. Denies headache, blurry vision, shortness of breath, chest pain, urinary symptoms, sick contacts, recent changes in diet. Pt was given IVF and placed on NPO. CT showed no acute disease. US showed fatty liver. No Leukocytosis. The following day, pt felt better. Abd pain, N/V resolved. Pt continued to have mild diarrhea but improved. Pt was seen by GI. GI recommend and US. Pt was instructed to follow up with PMD and take zofran for N/V. Discharge Exam - Head Exam Head Exam: ATRAUMATIC, NORMOCEPHALIC - Eye Exam Eye Exam: EOMI, Normal appearance, PERRL Pupil Exam: NORMAL ACCOMODATION, PERRL - ENT Exam ENT Exam: Mucous Membranes Moist - Respiratory Exam Respiratory Exam: NORMAL BREATHING PATTERN, UNREMARKABLE - Cardiovascular Exam Cardiovascular Exam: REGULAR RHYTHM, +S1, +S2 - GI/Abdominal Exam GI & Abdominal Exam: Soft, Tenderness, Unremarkable. absent: Distended, Firm - Neurological Exam Neurological exam: Alert, CN II-XII Intact, Normal Gait, Oriented x3, Reflexes Normal - Psychiatric Exam Psychiatric exam: Normal Affect, Normal Mood - Skin Skin Exam: Dry, Intact Discharge Plan - Discharge Medications Prescriptions: Ondansetron ODT [Zofran ODT] 4 mg PO Q8 PRN #21 odt PRN Reason: Nausea/Vomiting - Follow Up Plan Condition: FAIR Disposition: HOME/ ROUTINE Instructions: Chest Pain (ED), Acute Abdominal Pain (DC), Acute Abdominal Pain (GEN) Additional Instructions: Follow up with Dr. Calderon (Computer Operations Manager ) in 2 weeks Follow up at [facility] in 1 week Take Zofran for Nausea /VOmiting. Referrals: [facility] [place]] Yumiko WEINBERG,MD Boris [Medical Doctor] - <Fiorella Salinas - Last Filed: 02/25/17 15:52> Provider - Provider Date of Admission: 02/24/17 15:54 Attending physician: Fiorella Salinas MD Primary care physician: NO PRIMARY CARE PROVIDER Hospital Course - Lab Results Lab Results: Most Recent Lab Values WBC 9.1 10^3/ul (4.5-11.0) D 02/24/17 13:54 RBC 5.28 10^6/uL (3.5-6.1) 02/24/17 13:54 Hgb 14.7 gm/dL (12.0-16.0) 02/24/17 13:54 Hct 44.1 % (36.0-48.0) 02/24/17 13:54 MCV 83.5 fL (80.0-105.0) 02/24/17 13:54 MCH 27.8 pg (25.0-35.0) 02/24/17 13:54 MCHC 33.3 g/dl (31.0-37.0) 02/24/17 13:54 RDW 14.0 % (11.5-14.5) 02/24/17 13:54 Plt Count 203 10^3/uL (120.0-450.0) 02/24/17 13:54 MPV 9.5 fl (7.0-11.0) 02/24/17 13:54 Gran % 86.5 % (50.0-68.0) H 02/24/17 13:54 Lymph % (Auto) 4.2 % (22.0-35.0) L 02/24/17 13:54 Montgomery % (Auto) 8.2 % (1.0-6.0) H 02/24/17 13:54 Eos % (Auto) 1.0 % (1.5-5.0) L 02/24/17 13:54 Baso % (Auto) 0.1 % (0.0-3.0) 02/24/17 13:54 Gran # 7.88 (1.4-6.5) H 02/24/17 13:54 Lymph # 0.4 (1.2-3.4) L 02/24/17 13:54 Montgomery # 0.8 (0.1-0.6) H 02/24/17 13:54 Eos # 0.1 (0.0-0.7) 02/24/17 13:54 Baso # 0.01 K/mm3 (0.0-2.0) 02/24/17 13:54 PT 11.1 Seconds (9.9-11.8) 02/24/17 13:54 INR 1.03 (0.93-1.08) 02/24/17 13:54 APTT 27.5 Seconds (23.7-30.8) 02/24/17 13:54 pO2 55 mm/Hg (30-55) 02/24/17 13:54 VBG pH 7.38 (7.32-7.43) 02/24/17 13:54 VBG pCO2 46.0 (40-60) 02/24/17 13:54 VBG HCO3 27.2 mmol/l (21-28) 02/24/17 13:54 VBG Total CO2 28.6 mmol.L (22-28) H 02/24/17 13:54 VBG O2 Sat (Calc) 91.6 % (40-65) H 02/24/17 13:54 VBG Base Excess 1.5 mmol/L (0.0-2.0) 02/24/17 13:54 VBG Potassium 3.7 mmol/L (3.6-5.2) 02/24/17 13:54 Sodium 138.0 mmol/L (132-148) 02/24/17 13:54 Chloride 104.0 mmol/L (98-107) 02/24/17 13:54 Glucose 172 mg/dl (65-105) H 02/24/17 13:54 Lactate 1.5 mmol/L (0.7-2.1) 02/24/17 13:54 FiO2 21.0 % 02/24/17 13:54 Sodium 139 mmol/L (132-148) 02/25/17 06:45 Potassium 3.5 mmol/L (3.6-5.0) L 02/25/17 06:45 Chloride 104 mmol/L (98-107) 02/25/17 06:45 Carbon Dioxide 26 mmol/L (21-33) 02/25/17 06:45 Anion Gap 13 (10-20) 02/25/17 06:45 BUN 26 mg/dL (7-21) H 02/25/17 06:45 Creatinine 0.7 mg/dL (0.5-1.4) 02/25/17 06:45 Est GFR ( Amer) > 60 02/25/17 06:45 Est GFR (Non-Af Amer) > 60 02/25/17 06:45 POC Glucose (mg/dL) 141 mg/dL (65-110) H 02/24/17 21:15 Random Glucose 118 mg/dL (70-110) H 02/25/17 06:45 Calcium 7.5 mg/dL (8.4-10.5) L 02/25/17 06:45 Total Bilirubin 0.7 mg/dL (0.2-1.3) 02/25/17 06:45 AST 43 U/L (15-39) H 02/25/17 06:45 ALT 53 U/L (7-56) 02/25/17 06:45 Alkaline Phosphatase 77 U/L (38-133) 02/25/17 06:45 Lactate Dehydrogenase 444 U/L (333-699) 02/25/17 06:45 Total Creatine Kinase 42 U/L (35-230) 02/25/17 06:45 Troponin I 0.01 ng/mL 02/25/17 06:45 Total Protein 6.7 g/dL (5.8-8.3) 02/25/17 06:45 Albumin 3.3 g/dL (3.0-4.8) 02/25/17 06:45 Globulin 3.5 gm/dL 02/25/17 06:45 Albumin/Globulin Ratio 0.9 (1.1-1.8) L 02/25/17 06:45 Triglycerides 83 mg/dL (35-160) 02/25/17 06:45 Cholesterol 165 mg/dL (130-200) 02/25/17 06:45 LDL Cholesterol Direct 88 mg/dL (0-129) 02/25/17 06:45 HDL Cholesterol 46 mg/dL (29-60) 02/25/17 06:45 Amylase 113 U/L (35-125) 02/24/17 13:54 Lipase 129 U/L (23-300) 02/24/17 13:54 Venous Blood Potassium 3.7 mmol/L (3.6-5.2) 02/24/17 13:54 Urine Color Yellow (YELLOW) 02/24/17 15:45 Urine Appearance Clear (CLEAR) 02/24/17 15:45 Urine pH 7.0 (4.7-8.0) 02/24/17 15:45 Ur Specific [place] 1.020 (1.005-1.035) 02/24/17 15:45 Urine Protein Negative mg/dL (<30 mg/dL) 02/24/17 15:45 Urine Glucose (UA) Negative mg/dL (NEGATIVE) 02/24/17 15:45 Urine Ketones Trace mg/dL (NEGATIVE) H 02/24/17 15:45 Urine Blood Negative (NEGATIVE) 02/24/17 15:45 Urine Nitrate Negative (NEGATIVE) 02/24/17 15:45 Urine Bilirubin Negative (NEGATIVE) 02/24/17 15:45 Urine Urobilinogen 0.2 E.U./dL (<1 E.U./dL) 02/24/17 15:45 Ur Leukocyte Esterase Negative Parish/uL (NEGATIVE) 02/24/17 15:45 Stool Leukocytes, Qual Negative (NEGATIVE) 02/24/17 21:20 Hepatitis A IgM Ab Negative (NEGATIVE) 02/25/17 06:45 Hep Bs Antigen Negative (NEGATIVE) 02/25/17 06:45 Hep B Core IgM Ab Negative (NEGATIVE) 02/25/17 06:45 Hepatitis C Antibody Negative (NEGATIVE) 02/25/17 06:45 Attending/Attestation - Attestation I have personally seen and examined this patient.: Yes I have fully participated in the care of the patient.: Yes I have reviewed all pertinent clinical information, including history, physical exam and plan: Yes Notes (Text): I have seen and examined patient at bedside with the resident at bedside. Agree with the above note with the following additions/ exceptions: This is 61 year old female with history of HTN, dm-2, gastritis, dyslipidemia who got admitted for suspected gastroenteritis. Her abdominal pain and vomiting has resolved however had 1 episode of loose stool this morning. She was able to tolerate the diet without any problem. Patient wants to go home. GI consult appreciated. Patient is cleared to go home. Plan for outpatient Endoscopy. Advised patient to follow up with [facility] clinic in 3-5 days and follow up with GI clinic in [address] Fiorella Salinas
[2017-02-25 16:18] LABS: IMMUNOGLOBULIN G 1284.9 mg/dL (700.0-1600.0); IMMUNOGLOBULIN M 40.1 mg/dL (40.0-230.0)
[2017-02-25 16:19] LABS: IMMUNOGLOBULIN A 200.2 mg/dL (70.0-400.0)
--- NOTE | 2017-02-25 16:37 | CARD ---
APPROVED REPORT EKG Measurement Heart [id number] <Conclusion> Poor data quality, interpretation may be adversely affected Sinus tachycardia Possible Left atrial enlargement Nonspecific ST abnormality Abnormal ECG
--- NOTE | 2017-02-25 17:02 | CON ---
DATE: 02/25/2017 REASON FOR CONSULTATION: Cardiac evaluation for epigastric pain radiating to the chest. BRIEF CLINICAL HISTORY: This is a 61-year-old Bulgarian speaking female with a past medical history of hypertension, diabetes, gastric chronic problem in the past. Complaining of lower abdominal pain an d sometimes this pain radiates to the epigastrium and the chest. The patient denies any ____, denies any chest pain or palpitation or chest pain on exertion or dyspnea on exertion. PAST HISTORY: Significant for diabetes, hypertension, gastritis, hypercholesterolemia. PAST SURGICAL HISTORY: Significant for section. CURRENT MEDICATIONS: The patient is taking omeprazole, aspirin, Zofran p.r.n. ALLERGIES: No known drug allergies. REVIEW OF SYSTEMS: As per HPI. PHYSICAL EXAMINATION: As follows: VITAL SIGNS: Temperature afebrile, heart rate 75, blood pressure 127/69. HEENT: PERRLA. Extraocular muscles intact. NECK: Supple. No carotid bruits. No thyromegaly. CHEST: Clear to auscultation. HEART: S1, S2 regular. ABDOMEN: Soft. EXTREMITIES: Clubbing and cyanosis negative. BLOOD WORKUP: As follows: WBC ____, hemoglobin 14.7, hematocrit 44.1, platelet count 203. Chemistr y shows sodium 139, potassium 3.5, chloride 104, carbon dioxide 26, anion gap of 13, BUN 26, creatini ne 0.7, random sugar 115, calcium 7.5. Troponin 0.01. EKG showed sinus tachycardia, rate of 129. IMPRESSION: Atypical chest pain, mild tenderness in epigastrium, diabetes, hypertension, hyperlipide lenin. RECOMMENDATION: Continue GI workup. Because of the age and multiple risk factors for coronary arter y disease, suggest echo. The patient will be scheduled for echo as outpatient. For now, continue GI workup. We will follow with you. No evidence of acute coronary syndrome, no evidence of acute isch emia, atypical chest pain, abdominal pain radiating to the chest, mild tenderness in the left lower q uadrant. We will follow with you. Thank you, Dr. Jara for providing us the opportunity in taking care of the patient. Cori Valdes MD cc: [id number] TT: 02/25/2017 17:01:58 Confirmation # [id number] Dictation # [id number]
== END 2017-02-25 18:29 | disposition home or self-care (01) ==
LOC: ED 12:58 → ERH 15:54 → 2RNO 18:36
PROVIDERS: ADMIT Internal Medicine; ATTEND Hospitalist
DX: R07.89 Other chest pain (principal); R10.13 Epigastric pain; I10 Essential (primary) hypertension; K29.70 Gastritis, unspecified, without bleeding; E11.9 Type 2 diabetes mellitus without complications; E78.00 Pure hypercholesterolemia, unspecified; K21.9 Gastro-esophageal reflux disease without esophagitis; E78.5 Hyperlipidemia, unspecified; R11.2 Nausea with vomiting, unspecified; R19.7 Diarrhea, unspecified
CPT/HCPCS: 36415; 71010; 74176; 76700; 80053; 80061; 80074; 81003; 82150; 82550; 82784; 82803; 82948; 83615; 83690; 84484; 85025; 85610; 85730; 87040; 87045; 87086; 89055; 93005; 96361; 96374; 96375; 96376; 99285; C9113; G0378; J2270; J2405; J7040

== ENCOUNTER 2017-12-29 18:19 | Emergency (ER) | payer OTHER ==
[2017-12-29 18:19] VITALS: BMI 32.1
[2017-12-29 18:47] VITALS: TEMP 98.1
--- NOTE | 2017-12-29 19:27 | ED PDOC ---
Arrival/HPI - General Chief Complaint: Back Pain Time Seen by Provider: 12/29/17 19:21 Historian: Patient EM Caveat: Acuity of Condition - History of Present Illness Narrative History of Present Illness (Text): 12/29/17 19:28 Pt is a 62 yo female complaining of left mid to low back pain that refers to the left upper quadrant, groin and leg x 3 days. Pt reports that the pain is very intense, burning and aching frequently and often feels it in the epigastrium. Patient has a h/o insulin dependent diabetic with hypertension and hypercholesterolemia, for which she is medicated. Pt states that since the back and stomach pain started, she stopped taking her medication. Denies urinary or bowel changes, hematuria, shortness of breath, chest pain, fever or chill, nausea, vomiting or diarrhea. Time/Duration: Prior to Arrival Past Medical History - Provider Review Nursing Documentation Reviewed: Yes - Travel History Have you recently traveled outside [place] w/in the past 3 mons?: No - Infectious Disease Hx of Infectious Diseases: None - Tetanus Immunization Tetanus Immunization: Unknown - Cardiac Hx Cardiac Disorders: Yes Hx Hypertension: Yes - Pulmonary Hx Respiratory Disorders: No - Neurological Hx Neurological Disorder: Yes Hx Dizziness: Yes - HEENT Hx HEENT Disorder: No (OTITIS MEDIA) - Renal Hx Renal Disorder: No - Endocrine/Metabolic Hx Endocrine Disorders: Yes Hx Diabetes Mellitus Type 2: Yes Other/Comment: IDDM - Hematological/Oncological Hx Blood Disorders: No - Integumentary Hx Dermatological Disorder: No - Musculoskeletal/Rheumatological Hx Musculoskeletal Disorders: Yes Hx Arthritis: Yes - Gastrointestinal Hx Gastrointestinal Disorders: Yes Hx Diverticulitis: Yes Hx Gastroesophageal Reflux: Yes - Genitourinary/Gynecological Hx Genitourinary Disorders: No - Psychiatric Hx Depression: No Hx Emotional Abuse: No Hx Physical Abuse: No Hx Substance Use: No - Past Surgical History Past Surgical History: No Previous - Surgical History Hx Section: Yes - Anesthesia Hx Anesthesia Reactions: No - Suicidal Assessment Feels Threatened In Home Enviroment: No Family/Social History - Physician Review Nursing Documentation Reviewed: Yes Family/Social History: Unknown Family HX Smoking Status: Never Smoked Hx Alcohol Use: No Hx Substance Use: No Hx Substance Use Treatment: No Allergies/Home Meds Allergies/Adverse Reactions: Allergies No Known Allergies Allergy (Verified 12/29/17 18:40) Home Medications: Home Meds Medication Instructions Recorded Confirmed Atorvastatin [Lipitor] 40 mg PO DAILY 12/29/17 12/29/17 Losartan Potassium [Losartan 25 mg PO DAILY 12/29/17 12/29/17 Potassium] Sitagliptin Phos/Metformin HCl 1 tab PO BID 12/29/17 12/29/17 [Janumet 50-1,000 mg Tablet] Review of Systems - Review of Systems Systems not reviewed;Unavailable: Acuity of Condition Constitutional: Normal Eyes: Normal ENT: Normal Respiratory: Normal Cardiovascular: Normal Gastrointestinal: Normal, Abdominal Pain (left upper quadrant), Nausea, Other ( GERD) Genitourinary Female: Normal Musculoskeletal: Back Pain Skin: Normal Neurological: Normal Endocrine: Normal Hemo/Lymphatic: Normal Psychiatric: Normal Physical Exam Vital Signs Reviewed: Yes Vital Signs Temp Pulse Resp BP Pulse Ox 12/29/17 18:47 98.1 F 96 H 18 153/108 H 98 Temperature: Afebrile Blood Pressure: Normal Pulse: Regular Respiratory Rate: Normal Appearance: Positive for: Well-Appearing, Non-Toxic, Comfortable Pain Distress: None Mental Status: Positive for: Alert and Oriented X 3 - Systems Exam Head: Present: Atraumatic, Normocephalic Pupils: Present: PERRL Extroacular Muscles: Present: EOMI Conjunctiva: Present: Normal Mouth: Present: Moist Mucous Membranes Neck: Present: Normal Range of Motion Respiratory/Chest: Present: Clear to Auscultation, Good Air Exchange. No: Respiratory Distress, Accessory Muscle Use Cardiovascular: Present: Regular Rate and Rhythm, Normal S1, S2. No: Murmurs Abdomen: Present: Tenderness (LUQ and epigastrium), Normal Bowel Sounds. No: Distention, Peritoneal Signs, Rebound, Guarding, McBurney's Point Tender, Rovsing's Sign Present, Hernias, Feeding Tubes, Ostomy Tubes, Mass/Organomegaly , Scars, Other Back: Present: Normal Inspection Upper Extremity: Present: Normal Inspection. No: Cyanosis, Edema Lower Extremity: Present: Normal Inspection. No: Edema Neurological: Present: GCS=15, CN II-XII Intact, Speech Normal Skin: Present: Warm, Dry, Normal Color. No: Rashes Psychiatric: Present: Alert, Oriented x 3, Normal Insight, Normal Concentration Medical Decision Making ED Course and Treatment: 12/29/17 19:36 Impression Pt is a 62 yo female complaining of left mid to low back pain that refers to the left upper quadrant, groin and leg x 3 days. On PE, positive point tenderness to the left paraspinals and SIJ, CVA tenderness left side, point tender to the LUQ, and epigastrium w no bruit or pulsatile mass noted. SLR bilateral negative, SILT x 4, motor function 5/5 x 4 bilateral Plan cbc, cmp, ua, amylase, lipase CT abdomen to r/o renal stone, Toradol 30 mg for pain management Progress Note CT abdom reveals chronic L5 pars defect and focal colitis, no fractures, renal/ urethral stones and normal appendix Positive findings for mild UTI Macrobid 100 mg PO STAT Dispo home with Macrobid 100 mg PO BID x 7 days Ibruprofen 600 mg q6 for pain Follow up with [facility] [place] in the next 2 days - Lab Interpretations Lab Results: 12/29/17 19:50 12/29/17 19:50 Lab Results 12/29/17 19:50: Sodium 141, Potassium 4.1, Chloride 102, Carbon Dioxide 26, Anion Gap 17, BUN 14, Creatinine 0.7, Est GFR ( Amer) > 60, Est GFR (Non- Af Amer) > 60, Random Glucose 125 H, Calcium 9.8, Total Bilirubin 0.8, AST 48 H , ALT 61 H, Alkaline Phosphatase 108, Total Protein 8.3, Albumin 4.5, Globulin 3.9, Albumin/Globulin Ratio 1.2, Amylase 99, Lipase 119 12/29/17 19:50: WBC 6.9 D, RBC 5.10, Hgb 14.0, Hct 42.8, MCV 83.9, MCH 27.5, MCHC 32.7, RDW 14.1, Plt Count 192, MPV 9.4 12/29/17 19:30: Urine Color Yellow, Urine Appearance Clear, Urine pH 6.5, Ur Specific [place] 1.010, Urine Protein Negative, Urine Glucose (UA) Negative, Urine Ketones Negative, Urine Blood Negative, Urine Nitrate Negative, Urine Bilirubin Negative, Urine Urobilinogen 0.2, Ur Leukocyte Esterase Trace H, Urine RBC 0 - 2, Urine WBC 0 - 2, Ur Epithelial Cells 0 - 2, Urine Bacteria Small - RAD Interpretation Radiology Orders: 12/29/17 19:23 ABDOMEN & PELVIS [ABD & PELVIS W/O PO OR IV CONT] [CT] Stat - Medication Orders Current Medication Orders: Discontinued Medications Ketorolac Tromethamine (Toradol) 30 mg IM STAT STA Stop: 12/29/17 20:28 Last Admin: 12/29/17 20:45 Dose: 30 mg MAR Pain Assessment Document 12/29/17 20:45 AB (Rec: 12/29/17 20:46 [id number] Pain Reassessment Is this a pain reassessment? Yes Sleep Is patient sleeping during reassessment? No Presence of Pain Presence of Pain Yes Pain Scale Used Pain Scale Used Numeric Location Left, Right or Bilateral Left Upper or Lower Lower Pain Location Body Site Back Description Description Constant Intensity of Pain at present 5 Pain Behavior Guarding Aggravating Factors ADL's Alleviating Factors/Management Medication Techniques Alleviating Factors Medication IM Administration Charges Document 12/29/17 20:45 AB (Rec: 12/29/17 20:46 AB [id number] Injection Site MAR Injection Site Left Gluteus Emery Charges for Administration # of IM Administrations 1 Disposition/Present on Arrival - Present on Arrival Any Indicators Present on Arrival: No History of DVT/PE: No History of Uncontrolled Diabetes: Yes Urinary Catheter: No History of Decub. Ulcer: No History Surgical Site Infection Following: None - Disposition Have Diagnosis and Disposition been Completed?: Yes Diagnosis: UTI (urinary tract infection), Acute left-sided low back pain Disposition: HOME/ ROUTINE Disposition Time: 20:55 Patient Plan: Discharge Patient Problems: Current Active Problems Problem Status Onset Acute left-sided low back pain Acute UTI (urinary tract infection) Acute Condition: STABLE Discharge Instructions (ExitCare): Urinary Tract Infection in Women (ED), Lumbar Radiculopathy (ED) Print Language: IRANIAN Additional Instructions: Dear Baylee, Please take any medication that you have been prescribed for blood pressure, diabetes and cholesterol. Your urine revealed a mild infections that can cause low back and groin pain. Take the medication as prescribed until it is complete. You may also take ibuprofen for pain and inflammation of your back and leg pain, but take after eating a meal. If you develop a fever, chest pain, shortness of breath or severe abdominal gaffney or any other alarming symptoms, return to the emergency department. [facility] [place] at [facility] for Primary Care appointment Take care and all the best. Forms: [employer] (Mal[place]ian)
[2017-12-29 20:05] LABS: ALB/GLOB RATIO 1.2 (1.1-1.8); ALBUMIN 4.5 g/dL (3.0-4.8); ALT/SGPT 61 U/L (7-56); AMYLASE 99 U/L (35-125); AST/SGOT 48 U/L (14-36); BLOOD UREA NITROGEN 14 mg/dL (7-21); CALCIUM 9.8 mg/dL (8.4-10.5); GFR AFRICAN-AMERICAN > 60; GFR NON-AFRICAN AMERICAN > 60; LIPASE 119 U/L (23-300); MEAN CELL VOLUME 83.9 fl (80.0-105.0); MEAN CORPUSCULAR HEMOGLOBIN 27.5 pg (25.0-35.0); MEAN CORPUSCULAR HGB CONC 32.7 g/dl (31.0-37.0); MEAN PLATELET VOLUME 9.4 fl (7.0-11.0); RBC 5.1 10^6/uL (3.5-6.1); RED CELL DISTRIBUTION WIDTH 14.1 % (11.5-14.5); WHITE BLOOD COUNT 6.9 10^3/ul (4.5-11.0)
[2017-12-29 20:05] LABS: PH,URINE 6.5 (4.7-8.0); URINE BILIRUBIN NEGATIVE (NEGATIVE); URINE BLOOD NEGATIVE (NEGATIVE); URINE GLUCOSE (UA) NEGATIVE (NEGATIVE); URINE LEUKOCYTE ESTERASE TRACE Leu/uL (NEGATIVE); URINE NITRATE NEGATIVE (NEGATIVE); URINE PROTEIN NEGATIVE mg/dL (<30 mg/dL); URINE UROBILINOGEN 0.2 E.U./dL (<1 E.U./dL)
[2017-12-29 20:11] LABS: URINE APPEARANCE CLEAR (CLEAR); URINE COLOR YELLOW (YELLOW)
--- NOTE | 2017-12-29 20:29 | CT ---
EXAM: CT Abdomen and Pelvis Without Intravenous Contrast CLINICAL HISTORY: 62 years old, female; Pain; Abdominal pain; Acute; Additional info: Flank and groin pain TECHNIQUE: Axial computed tomography images of the abdomen and pelvis without intravenous contrast. All CT scans at this facility use one or more dose reduction techniques, viz.: automated exposure control; ma/kV adjustment per patient size (including targeted exams where dose is matched to indication; i.e. head); or iterative reconstruction technique. Coronal and sagittal reformatted images were created and reviewed. COMPARISON: CT - ABD PELVIS W/O PO OR IV CONT 2017-02-24 14:35 FINDINGS: Limitations: Motion artifact - mild. Lower thorax: Borderline cardiomegaly. ABDOMEN: Liver: Unremarkable. Gallbladder and bile ducts: No calcified stones. No ductal dilation. Pancreas: Unremarkable. No ductal dilation. Spleen: No splenomegaly. Adrenals: No mass. Kidneys and ureters: No renal calculi. Duplicated left renal collecting system. No hydronephrosis. Stomach and bowel: Scattered diverticula within colon. No associated inflammatory stranding. Mild mural thickening short segment of proximal sigmoid colon. No associated inflammatory stranding. No obstruction. Appendix: Normal caliber. No inflammation. PELVIS: Bladder: Unremarkable. No stones. Reproductive: Unremarkable as visualized. ABDOMEN and PELVIS: Intraperitoneal space: No significant fluid collection. No free air. Bones/joints: Chronic L5 pars defects with anterolisthesis. Degenerative changes of spine. No acute fracture. Soft tissues: Unremarkable. Vasculature: Mild atherosclerotic disease. No aneurysm. Lymph nodes: Probable subcentimeter short axis perihepatic lymph node. IMPRESSION: 1. No definite CT evidence of urolithiasis. 2. Mural thickening of sigmoid colon. DDX: Muscular hypertrophy, underdistention, focal colitis. 3. Incidental/non-acute findings are described above.
[2017-12-29 20:44] LABS: URINE BACTERIA SMALL (NEG); URINE EPITHELIAL CELLS 0 - 2 /hpf (0-5); URINE RBC 0 - 2 /hpf (0-2); URINE WBC 0 - 2 /hpf (0-6)
[2017-12-29 20:58] VITALS: BP 132/79; PULSE 80; RESP 16; O2SAT 96
== END 2017-12-29 21:36 | disposition home or self-care (01) ==
LOC: ED 18:19
DX: N39.0 Urinary tract infection, site not specified (principal); M54.5 Low back pain
CPT/HCPCS: 74176; 80053; 81001; 82150; 83690; 85027; 87086; 96372; 99283; J1885